=== PATIENT | male | born 1995 | race Hispanic/Latino ===

== ENCOUNTER → 2017-12-14 | Outpatient (CLI) | payer BC ==
--- NOTE | 2017-12-14 12:17 | Diagnostic Imaging Report ---
PROCEDURE:ABDOMINAL ULTRASOUND COMPARISON:None. INDICATIONS:Abdominal pain TECHNIQUE: Hyatt-scale and color Doppler ultrasound. FINDINGS: Midsegment of the inferior vena cava and abdominal aorta are normal. The pancreas is obscured. Right liver span 13 cm. Diffusely echogenic parenchyma with a smooth margin. Portal vein diameter 1 cm; normal flow direction. Normal gallbladder. Common bile duct diameter 0.5 cm. Right kidney: 9.5 x 4 x 5.5 cm Left kidney: 11.7 x 4.3 x 4.5 cm. Both kidneys are normal. Spleen length 8.7 cm. No ascites. CONCLUSION: Echogenic liver most commonly secondary to steatosis. The pancreas could not be evaluated due to overlying bowel gas. Otherwise, normal abdominal ultrasound. Dictated by: Rickey Keith M.D. on 12/14/2017 at 12:17 Electronically approved by: Rickey Keith M.D. on 12/14/2017 at 12:17
== END ==
LOC: US 11:13
PROVIDERS: ATTEND Family Medicine
DX: R10.9 Unspecified abdominal pain (principal)
CPT/HCPCS: 76700